=== PATIENT | female | born 1960 | race Caucasian/White ===

== ENCOUNTER 2021-12-06 22:40 | Inpatient (IN) ==
[2021-12-06] MEDS ORDERED: *HR* Ticagrelor 90 MG TABLET PO ONE (23:00)
[2021-12-06] MEDS ORDERED: Aspirin 81 MG TAB.CHEW PO ONE (23:00)
[2021-12-06] MEDS ORDERED: *HR* Heparin 5,000 UNIT/ML VIAL IVP ONE (23:00)
[2021-12-06] MEDS ORDERED: Aspirin 81 MG TAB.CHEW ONE (23:01)
[2021-12-06] MEDS ORDERED: *HR* Ticagrelor 90 MG TABLET ONE (23:01)
[2021-12-06] MEDS ORDERED: *HR* Heparin 5,000 UNIT/ML VIAL ONE (23:01)
[2021-12-06 23:09] LABS: Basophils % 0.3 %; Eosinophils # 0.1 K/mcL (0.0-0.6); Eosinophils % 0.8 %; Hematocrit 41.4 % (35.3-44.9); Hemoglobin 14.4 g/dL (11.5-15.4); Immature Granulocytes % 0.7 % (0-4); Lymphocytes # 1.6 K/mcL (0.6-4.6); Lymphocytes % 10.8 %; Mean Corpuscular HGB Conc 34.8 g/dL (31.6-35.5); Mean Corpuscular Volume 103.5 fL (83.0-100.0); Mean Platelet Volume 9.7 fL (9.4-12.4); Monocytes # 1.4 K/mcL (0.0-1.3); Monocytes % 9.5 %; Neutrophils # 11.5 K/mcL (1.6-8.9); Platelet Count 333 K/mcL (140-400); Segmented Neutrophils % 77.9 %; White Blood Count 14.7 K/mcL (4.3-11.1)
[2021-12-06] MEDS ORDERED: *HR* FentaNYL (PF) 100 MCG/2 ML VIAL ONE (23:11)
[2021-12-06] MEDS ORDERED: *HR* Midazolam HCl 2 MG/2 ML VIAL ONE (23:11)
[2021-12-06] MEDS ORDERED: *HR* Heparin 10,000 UNIT/10 ML VIAL ONE (23:12)
[2021-12-06] MEDS ORDERED: 0.9 % Sodium Chloride 1,000 ML ONE (23:12)
[2021-12-06] MEDS ORDERED: Heparin 1,000 UNITS/500 mL 1,000 ML ONE (23:12)
[2021-12-06] MEDS ORDERED: Iopamidol - 370 200 ML INFUS..BTL ONE (23:12)
[2021-12-06] MEDS ORDERED: Nitroglycerin 1,000 MCG/5 ML VIAL IV ONE (23:12)
[2021-12-06 23:30] LABS: BUN/Creatinine Ratio 14 (6-26); Blood Urea Nitrogen 9 mg/dL (6-20); Calcium 9.8 mg/dL (8.6-10.3); Carbon Dioxide 24 mEq/L (23-29); Chloride 99 mEq/L (98-107); Glucose 150 mg/dL (70-105); Osmolality,Calculated 278 (280-300); Sodium 133 mEq/L (136-145)
[2021-12-06 23:35] LABS: Troponin I 3.98 ng/mL (< 0.04)
[2021-12-06 23:37] LABS: Platelet Estimate Normal (Normal)
[2021-12-07] MEDS ORDERED: Iopamidol - 370 200 ML INFUS..BTL ONE (00:04)
[2021-12-07] MEDS ORDERED: *HR* Midazolam HCl 2 MG/2 ML VIAL ONE (00:55)
[2021-12-07] MEDS ORDERED: Heparin 1,000 UNITS/500 mL 500 ML ONE (01:03)
[2021-12-07] MEDS ORDERED: *HR* FentaNYL (PF) 100 MCG/2 ML VIAL ONE (01:19)
[2021-12-07] MEDS ORDERED: Naloxone 0.4 MG/ML INJ IVP PRN (01:45)
[2021-12-07] MEDS ORDERED: Papaverine 60 MG/2 ML VIAL IVP ONE (01:49)
[2021-12-07] MEDS ORDERED: Chlorhexidine Rinse 15 ML MOUTHWASH MM SCH (02:00)
[2021-12-07] MEDS ORDERED: *HR* FentaNYL (PF) 1,000 MCG/20 ML VIAL ONE (02:10)
[2021-12-07] MEDS ORDERED: EPHEDrine sulfate 50 MG/10 ML VIAL IVP ONE (02:10)
[2021-12-07] MEDS ORDERED: *HR* Midazolam HCl 5 MG/5 ML VIAL IVP ONE (02:10)
[2021-12-07] MEDS ORDERED: *HR* Norepinephrine 4 MG/4 ML VIAL IVC ONE (02:12)
[2021-12-07] MEDS ORDERED: *HR* Rocuronium Bromide 50 MG/5 ML VIAL ONE ×2 (02:12→06:19)
[2021-12-07] MEDS ORDERED: niCARdipine 20 MG/200 ML MLS IVC ONE (02:12)
[2021-12-07] MEDS ORDERED: Tranexamic Acid 1,000 MG/10 ML VIAL ONE (02:14)
[2021-12-07] MEDS ORDERED: *HR* Etomidate 20 MG/10 ML AMPUL IVP ONE (02:14)
[2021-12-07] MEDS ORDERED: Calcium Gluconate 1,000 MG/10 ML VIAL ONE (02:14)
[2021-12-07] MEDS ORDERED: Protamine Sulfate 250 MG/25 ML VIAL IVP ONE (02:18)
[2021-12-07] MEDS ORDERED: DOBUTamine 1,000 MG/250 ML BAG ONE (02:20)
[2021-12-07] MEDS ORDERED: NiCARdipine 2.5 MG/10 ML Syringe IVPB ONE (02:20)
[2021-12-07] MEDS ORDERED: Insulin Regular, Human 100 UNIT/ML IV PRN (02:27)
[2021-12-07] MEDS ORDERED: Ondansetron 4 MG/2 ML VIAL IVP PRN (02:27)
[2021-12-07] MEDS ORDERED: *HR* FentaNYL (PF) 100 MCG/2 ML VIAL IVP PRN ×2 (02:27→14:06)
[2021-12-07] MEDS ORDERED: Acetaminophen 325 MG TABLET PO PRN (02:27)
[2021-12-07] MEDS ORDERED: Calcium Gluconate 1gm/50mL 1 GM/50 ML BAG IVPB PRN (02:27)
[2021-12-07] MEDS ORDERED: *HR* Dextrose 50 % in Water (Syg) 50 ML SYRINGE IVP PRN (02:27)
[2021-12-07] MEDS ORDERED: *HR* Vasopressin 20 UNIT/ML VIAL ONE (02:28)
[2021-12-07 03:12] LABS: Basophils % 0.3 %; Eosinophils % 0.1 %; Hematocrit 37.3 % (35.3-44.9); Immature Granulocytes % 0.3 % (0-4); Lymphocytes # 1.1 K/mcL (0.6-4.6); Lymphocytes % 7.2 %; Mean Corpuscular Hemoglobin 35.4 pg (28.0-33.3); Mean Corpuscular Volume 103.9 fL (83.0-100.0); Mean Platelet Volume 9.9 fL (9.4-12.4); Monocytes # 1.3 K/mcL (0.0-1.3); Monocytes % 8.4 %; Platelet Count 302 K/mcL (140-400); Red Blood Count 3.59 M/mcL (3.82-4.97); Segmented Neutrophils % 83.7 %; White Blood Count 14.9 K/mcL (4.3-11.1)
[2021-12-07 03:13] LABS: Hemoglobin 12.7 g/dL (11.5-15.4); Neutrophils # 12.5 K/mcL (1.6-8.9)
[2021-12-07 03:18] LABS: Magnesium 1.6 mg/dL (1.6-2.6)
[2021-12-07 03:19] LABS: INR 1.2; Prothrombin Time 13.3 Seconds (9.4-12.1)
[2021-12-07 03:28] LABS: Estimated Average Glucose 108 mg/dl; Hemoglobin A1C 5.4 %
[2021-12-07 03:30] LABS: Activated Partial Thrombo Time 81.6 Seconds (26.0-36.0)
[2021-12-07 03:32] LABS: BUN/Creatinine Ratio 12 (6-26); Blood Urea Nitrogen 7 mg/dL (6-20); Carbon Dioxide 26 mEq/L (23-29); Chloride 102 mEq/L (98-107); Chol/HDL Ratio 3.6 (0-4.9); Cholesterol 157 mg/dL (< 200); Glucose 121 mg/dL (70-105); HDL Cholesterol 44 mg/dL (40-59); LDL Cholesterol,Calculated 96 mg/dL (< 100); Magnesium 1.7 mg/dL (1.6-2.6); Osmolality,Calculated 275 (280-300); Potassium 4.6 mEq/L (3.5-5.1); Sodium 133 mEq/L (136-145); Triglycerides 83 mg/dL (< 150)
[2021-12-07 03:35] LABS: ABG Base Excess -4 mEq/L (-2 to 3); ABG Chloride 101 mEq/L (98-107); ABG Glucose 106 mg/dL (60-95); ABG HCO3 20 mEq/L (21-27); ABG Ionized Calcium 1.19 mmol/L (1.15-1.35); ABG Oxygen Saturation 100 % (95-98); ABG PCO2 35 mmHg (35-45); ABG PH 7.38 pH Units (7.32-7.45); ABG PO2 414 mmHg (85-104); ABG TCO2 21 mEq/L (20-26)
[2021-12-07] MEDS: CeFAZolin Syr 2,000MG/20 ML 2,000 MG/20 ML SYRINGE IVPB ONE ×2 (03:39→03:45)
[2021-12-07 04:58] LABS: ABG Base Excess -4 mEq/L (-2 to 3); ABG Chloride 101 mEq/L (98-107); ABG Glucose 128 mg/dL (60-95); ABG HCO3 21 mEq/L (21-27); ABG Ionized Calcium 1.19 mmol/L (1.15-1.35); ABG Oxygen Saturation 99 % (95-98); ABG PCO2 38 mmHg (35-45); ABG PH 7.36 pH Units (7.32-7.45); ABG PO2 136 mmHg (85-104); ABG TCO2 23 mEq/L (20-26)
[2021-12-07 05:24] LABS: Platelet Estimate Normal (Normal)
[2021-12-07 05:46] LABS: ABG Base Excess -5 mEq/L (-2 to 3); ABG Chloride 100 mEq/L (98-107); ABG Glucose 171 mg/dL (60-95); ABG HCO3 20 mEq/L (21-27); ABG Ionized Calcium 1.04 mmol/L (1.15-1.35); ABG Oxygen Saturation 100 % (95-98); ABG PCO2 34 mmHg (35-45); ABG PH 7.37 pH Units (7.32-7.45); ABG PO2 506 mmHg (85-104); ABG TCO2 21 mEq/L (20-26)
[2021-12-07 06:12] LABS: ABG Base Excess 2 mEq/L (-2 to 3); ABG Chloride 101 mEq/L (98-107); ABG Glucose 178 mg/dL (60-95); ABG HCO3 25 mEq/L (21-27); ABG Ionized Calcium 0.95 mmol/L (1.15-1.35); ABG Oxygen Saturation 100 % (95-98); ABG PCO2 31 mmHg (35-45); ABG PH 7.51 pH Units (7.32-7.45); ABG PO2 548 mmHg (85-104); ABG TCO2 26 mEq/L (20-26)
[2021-12-07 06:36] LABS: ABG Base Excess -2 mEq/L (-2 to 3); ABG Chloride 102 mEq/L (98-107); ABG Glucose 187 mg/dL (60-95); ABG HCO3 24 mEq/L (21-27); ABG Ionized Calcium 1.02 mmol/L (1.15-1.35); ABG Oxygen Saturation 100 % (95-98); ABG PCO2 40 mmHg (35-45); ABG PH 7.37 pH Units (7.32-7.45); ABG PO2 470 mmHg (85-104); ABG TCO2 25 mEq/L (20-26)
[2021-12-07] MEDS: niCARdipine 20 MG/200 ML MLS IVC SCH ×6 (07:22→20:10)
[2021-12-07] MEDS: DOBUTamine 1,000 MG/250 ML BAG IVC SCH (07:22)
[2021-12-07] MEDS ORDERED: Albumin Human 5% 25.0 GM/500 ML IV.SOLN ONE (07:23)
[2021-12-07] MEDS: Norepinephrine 4 MG/254 ML IV.SOLN IVC SCH ×3 (07:23→18:46)
[2021-12-07 07:40] LABS: ABG Base Excess -4 mEq/L (-2 to 3); ABG Chloride 106 mEq/L (98-107); ABG Glucose 166 mg/dL (60-95); ABG HCO3 22 mEq/L (21-27); ABG Ionized Calcium 1.14 mmol/L (1.15-1.35); ABG Oxygen Saturation 98 % (95-98); ABG PCO2 45 mmHg (35-45); ABG PO2 108 mmHg (85-104); ABG TCO2 24 mEq/L (20-26)
[2021-12-07] MEDS ORDERED: CeFAZolin 2 GM/120 ML BAG IVPB SCH (08:00)
[2021-12-07] MEDS ORDERED: Artificial Tears SOLN 15 ML BOTTLE BOTH EYES PRN (08:11)
[2021-12-07 08:45] LABS: ABG Base Excess 0 mEq/L (-2 to 3); ABG HCO3 26 mEq/L (21-27); ABG Oxygen Saturation 94 % (95-98); ABG PCO2 51 mmHg (35-45); ABG PH 7.32 pH Units (7.32-7.45); ABG PO2 77 mmHg (85-104); ABG TCO2 28 mEq/L (20-26); Blood Gas Modality ASSIST CONTROL; Blood Gas VT 500 cc
[2021-12-07] MEDS ORDERED: 0.9 % Sodium Chloride 250 ML ONE ×2 (08:53→15:56)
[2021-12-07] MEDS: *HR* OxyCODONE/APAP 5/325 TABLET PO PRN ×3 (08:58→16:00)
[2021-12-07] MEDS: Chlorhexidine Rinse 15 ML MOUTHWASH MM SCH ×2 (08:58→20:09)
[2021-12-07] MEDS ORDERED: Pantoprazole 40 MG VIAL IVP SCH (09:00)
[2021-12-07] MEDS ORDERED: Aspirin 81 MG TAB.CHEW PO SCH (09:00)
[2021-12-07 09:50] LABS: Basophils % 0.1 %; Eosinophils % 0.3 %; Hematocrit 19.8 % (35.3-44.9); Hemoglobin 6.7 g/dL (11.5-15.4); Immature Granulocytes % 0.4 % (0-4); Lymphocytes # 0.6 K/mcL (0.6-4.6); Mean Corpuscular HGB Conc 33.8 g/dL (31.6-35.5); Mean Corpuscular Hemoglobin 34.5 pg (28.0-33.3); Mean Corpuscular Volume 102.1 fL (83.0-100.0); Monocytes # 0.7 K/mcL (0.0-1.3); Monocytes % 6.1 %; Neutrophils # 10.5 K/mcL (1.6-8.9); Platelet Count 127 K/mcL (140-400); Red Blood Count 1.94 M/mcL (3.82-4.97); Red Cell Distribution Width 21.3 % (11.5-14.5); Segmented Neutrophils % 88.1 %
[2021-12-07 09:52] LABS: White Blood Count 11.9 K/mcL (4.3-11.1)
[2021-12-07 10:04] LABS: INR 1.4; Prothrombin Time 15.6 Seconds (9.4-12.1)
[2021-12-07 10:07] LABS: Activated Partial Thrombo Time 44.5 Seconds (26.0-36.0); BUN/Creatinine Ratio 12 (6-26); Blood Urea Nitrogen 6 mg/dL (6-20); Calcium 7.5 mg/dL (8.6-10.3); Carbon Dioxide 26 mEq/L (23-29); Chloride 107 mEq/L (98-107); Glucose 124 mg/dL (70-105); Magnesium 2.3 mg/dL (1.6-2.6); Osmolality,Calculated 287 (280-300); Potassium 3.9 mEq/L (3.5-5.1); Sodium 139 mEq/L (136-145)
[2021-12-07 11:06] LABS: ABG Base Excess 1 mEq/L (-2 to 3); ABG HCO3 25 mEq/L (21-27); ABG Oxygen Saturation 99 % (95-98); ABG PCO2 36 mmHg (35-45); ABG PH 7.45 pH Units (7.32-7.45); ABG PO2 108 mmHg (85-104); ABG TCO2 26 mEq/L (20-26); Blood Gas Modality ASSIST CONTROL; Blood Gas VT 500 cc
[2021-12-07] MEDS: Artificial Tears SOLN 15 ML BOTTLE BOTH EYES SCH ×4 (11:33→23:41)
[2021-12-07] MEDS ORDERED: FentaNYL (PF) 1,000 MCG/100 ML IV.SOLN IVC SCH (11:45)
[2021-12-07] MEDS ORDERED: Aspirin 81 MG TAB.CHEW PO ONE (12:00)
[2021-12-07] MEDS: Dexmedetomidine HCl 400 MCG/100 ML MLS IVC SCH ×2 (12:08→20:20)
[2021-12-07] MEDS ORDERED: Lidocaine 2% Syringe 100 MG/5 ML IVP ONE (13:40)
[2021-12-07] MEDS ORDERED: Albumin Human 25% 25 GM/100 ML IV.SOLN IVPB ONE (13:40)
[2021-12-07] MEDS ORDERED: *HR* Phenylephrine 10 MG/ML VIAL IVC ONE (13:40)
[2021-12-07] MEDS ORDERED: *HR* Heparin 10,000 UNIT/10 ML VIAL IR ONE (13:40)
[2021-12-07] MEDS ORDERED: *HR* Magnesium Sulfate 2 GM/50 ML PIGGYBACK IVPB ONE (13:40)
[2021-12-07] MEDS ORDERED: Mannitol 25% vial 12.5 GM/50 ML VIAL IVPB ONE (13:40)
[2021-12-07] MEDS: FentaNYL (PF) 1,000 MCG/100 ML IV.SOLN IVC SCH ×2 (14:36→22:14)
[2021-12-07 15:22] LABS: Hematocrit 26.7 % (35.3-44.9)
[2021-12-07 15:25] LABS: ABG Base Excess -4 mEq/L (-2 to 3); ABG HCO3 19 mEq/L (21-27); ABG Oxygen Saturation 95 % (95-98); ABG PCO2 28 mmHg (35-45); ABG PH 7.45 pH Units (7.32-7.45); ABG PO2 72 mmHg (85-104); ABG TCO2 20 mEq/L (20-26); Blood Gas Modality ASSIST CONTROL; Blood Gas VT 500 cc
[2021-12-07 15:26] LABS: Hemoglobin 9.1 g/dL (11.5-15.4)
[2021-12-07] MEDS ORDERED: 0.9 % Sodium Chloride 500 ML ONE (15:29)
[2021-12-07] MEDS: CeFAZolin 2 GM/120 ML BAG IVPB SCH ×2 (16:31→23:42)
[2021-12-07 17:43] LABS: ABG Base Excess -2 mEq/L (-2 to 3); ABG HCO3 21 mEq/L (21-27); ABG Oxygen Saturation 94 % (95-98); ABG PCO2 32 mmHg (35-45); ABG PH 7.43 pH Units (7.32-7.45); ABG PO2 67 mmHg (85-104); ABG TCO2 22 mEq/L (20-26); Blood Gas Modality ASSIST CONTROL; Blood Gas VT 420 cc
[2021-12-07 17:52] LABS: VBG HCO3 22 mEq/L (21-27); VBG PCO2 40 mmHg (41-51); VBG PH 7.34 pH Units (7.32-7.42); VBG PO2 37 mmHg (25-50)
[2021-12-07] MEDS ORDERED: Bumetanide 1 MG/4 ML VIAL IVP ONE (18:22)
[2021-12-07 21:15] LABS: Basophils # 0.1 K/mcL (0.0-0.2); Basophils % 0.3 %; Eosinophils % 0.1 %; Immature Granulocytes % 0.4 % (0-4); Lymphocytes # 1.1 K/mcL (0.6-4.6); Lymphocytes % 7.4 %; Mean Corpuscular HGB Conc 34.5 g/dL (31.6-35.5); Mean Corpuscular Hemoglobin 30.2 pg (28.0-33.3); Mean Platelet Volume 9.3 fL (9.4-12.4); Monocytes # 1.9 K/mcL (0.0-1.3); Monocytes % 12.1 %; Neutrophils # 12.3 K/mcL (1.6-8.9); Platelet Count 235 K/mcL (140-400); Red Blood Count 3.77 M/mcL (3.82-4.97); Red Cell Distribution Width 18.1 % (11.5-14.5); Segmented Neutrophils % 79.7 %; White Blood Count 15.4 K/mcL (4.3-11.1)
[2021-12-07 21:17] LABS: Hemoglobin 11.4 g/dL (11.5-15.4); Mean Corpuscular Volume 87.5 fL (83.0-100.0)
[2021-12-07 21:22] LABS: INR 1.3
[2021-12-07] MEDS ORDERED: Acetaminophen IV 1,000 MG/100 ML BAG IVPB ONE (21:40)
[2021-12-07 22:00] LABS: ABG Base Excess -1 mEq/L (-2 to 3); ABG HCO3 22 mEq/L (21-27); ABG Oxygen Saturation 97 % (95-98); ABG PCO2 28 mmHg (35-45); ABG PH 7.49 pH Units (7.32-7.45); ABG PO2 80 mmHg (85-104); ABG TCO2 23 mEq/L (20-26); Blood Gas Modality ASSIST CONTROL; Blood Gas VT 420 cc
[2021-12-08] MEDS: Norepinephrine 4 MG/254 ML IV.SOLN IVC SCH ×4 (01:02→23:23)
[2021-12-08] MEDS ORDERED: *HR* Midazolam HCl 2 MG/2 ML VIAL IVP PRN (01:34)
[2021-12-08] MEDS ORDERED: Bumetanide 1 MG/4 ML VIAL IVP ONE (02:00)
[2021-12-08] MEDS: niCARdipine 20 MG/200 ML MLS IVC SCH ×6 (02:16→20:54)
[2021-12-08] MEDS: Dexmedetomidine HCl 400 MCG/100 ML MLS IVC SCH ×2 (02:20→07:21)
[2021-12-08 02:28] LABS: Hematocrit 32.7 % (35.3-44.9); Hemoglobin 11.5 g/dL (11.5-15.4)
[2021-12-08] MEDS: DOBUTamine 1,000 MG/250 ML BAG IVC SCH ×2 (03:03→04:00)
[2021-12-08] MEDS: FentaNYL (PF) 1,000 MCG/100 ML IV.SOLN IVC SCH (04:05)
[2021-12-08] MEDS: Artificial Tears SOLN 15 ML BOTTLE BOTH EYES SCH ×4 (04:15→20:13)
[2021-12-08 04:29] LABS: Basophils # 0.1 K/mcL (0.0-0.2); Basophils % 0.4 %; Eosinophils % 0.1 %; Hemoglobin 11.5 g/dL (11.5-15.4); Immature Granulocytes % 0.5 % (0-4); Lymphocytes # 1.2 K/mcL (0.6-4.6); Lymphocytes % 8.2 %; Mean Corpuscular HGB Conc 34.8 g/dL (31.6-35.5); Mean Corpuscular Hemoglobin 30.4 pg (28.0-33.3); Mean Corpuscular Volume 87.3 fL (83.0-100.0); Mean Platelet Volume 9.6 fL (9.4-12.4); Monocytes # 1.8 K/mcL (0.0-1.3); Monocytes % 12.2 %; Neutrophils # 11.6 K/mcL (1.6-8.9); Platelet Count 196 K/mcL (140-400); Red Blood Count 3.78 M/mcL (3.82-4.97); Red Cell Distribution Width 19.2 % (11.5-14.5); Segmented Neutrophils % 78.6 %; White Blood Count 14.8 K/mcL (4.3-11.1)
[2021-12-08 04:36] LABS: INR 1.4; Prothrombin Time 16.1 Seconds (9.4-12.1)
[2021-12-08 04:49] LABS: BUN/Creatinine Ratio 25 (6-26); Blood Urea Nitrogen 14 mg/dL (6-20); Calcium 7.8 mg/dL (8.6-10.3); Carbon Dioxide 23 mEq/L (23-29); Chloride 107 mEq/L (98-107); Glucose 106 mg/dL (70-105); Osmolality,Calculated 289 (280-300); Potassium 4.1 mEq/L (3.5-5.1); Sodium 139 mEq/L (136-145)
[2021-12-08 05:20] LABS: ABG Base Excess 0 mEq/L (-2 to 3); ABG HCO3 23 mEq/L (21-27); ABG Oxygen Saturation 91 % (95-98); ABG PCO2 32 mmHg (35-45); ABG PH 7.47 pH Units (7.32-7.45); ABG PO2 57 mmHg (85-104); ABG TCO2 24 mEq/L (20-26); Blood Gas Modality ASSIST CONTROL; Blood Gas VT 420 cc
[2021-12-08] MEDS: Pantoprazole 40 MG VIAL IVP SCH ×2 (05:34→20:54)
[2021-12-08] MEDS ORDERED: Calcium Gluconate 1gm/50mL 1 GM/50 ML BAG IVPB PRN ×2 (05:34→05:45)
[2021-12-08] MEDS ORDERED: FentaNYL (PF) 1,000 MCG/100 ML IV.SOLN IVC SCH (05:47)
[2021-12-08] MEDS ORDERED: Amiodarone Premix 150 MG/100 ML BAG IVPB ONE ×2 (06:25→06:29)
[2021-12-08] MEDS ORDERED: Amiodarone Premix 360 MG/200 ML BAG IVC ONE (06:25)
[2021-12-08] MEDS ORDERED: *HR* Midazolam HCl 2 MG/2 ML VIAL IVP ONE (06:30)
[2021-12-08] MEDS: Albumin Human 5% 12.5 GM/250 ML IV.SOLN IVPB PRN ×6 (06:30→17:35)
[2021-12-08] MEDS ORDERED: Ringers Solution, Lactated 1,000 ML ONE (06:36)
[2021-12-08] MEDS ORDERED: Ringers Solution, Lactated 1,000 ML IVC ONE (06:36)
[2021-12-08] MEDS ORDERED: Midazolam HCl 50 MG/50 ML IV.SOLN IVC SCH (07:00)
[2021-12-08] MEDS: CeFAZolin 2 GM/120 ML BAG IVPB SCH ×3 (08:49→23:26)
[2021-12-08] MEDS: Chlorhexidine Rinse 15 ML MOUTHWASH MM SCH ×2 (08:50→20:54)
[2021-12-08] MEDS ORDERED: Docusate Oral Soln 100 MG/10 ML UDC GTUBE SCH (09:15)
[2021-12-08 11:00] LABS: Mixed Venous Blood pCO2 42 mmHg (44-46); Mixed Venous Blood pH 7.34 pH Units (7.34-7.36); Mixed Venous Blood pO2 73 mmHg (35-45)
[2021-12-08] MEDS: Amiodarone Premix 360 MG/200 ML BAG IVC SCH (12:45)
[2021-12-08 13:06] LABS: Hematocrit 29.3 % (35.3-44.9); Hemoglobin 10.1 g/dL (11.5-15.4)
[2021-12-08] MEDS: Aspirin Enteric Coated 81 MG Tablet PO SCH (14:54)
[2021-12-08] MEDS: *HR* OxyCODONE/APAP 5/325 TABLET PO PRN ×2 (14:54→18:46)
[2021-12-08 18:04] LABS: Hematocrit 25.8 % (35.3-44.9); Hemoglobin 8.8 g/dL (11.5-15.4)
[2021-12-08] MEDS ORDERED: *HR* OxyCODONE/APAP 5/325 TABLET PO ONE (18:57)
[2021-12-08] MEDS: Morphine Sulfate ER (12 HR) 15 MG TABLET.ER PO SCH (19:15)
[2021-12-08] MEDS ORDERED: *HR* OxyCODONE Immed Rel 5 MG TABLET PO PRN (20:00)
[2021-12-09] MEDS: Amiodarone Premix 360 MG/200 ML BAG IVC SCH (00:20)
[2021-12-09] MEDS: *HR* OxyCODONE Immed Rel 5 MG TABLET PO PRN ×3 (03:20→16:07)
[2021-12-09] MEDS: niCARdipine 20 MG/200 ML MLS IVC SCH ×6 (03:20→23:05)
[2021-12-09 03:58] LABS: Basophils % 0.3 %; Eosinophils % 0.3 %; Hematocrit 26.5 % (35.3-44.9); Hemoglobin 9.2 g/dL (11.5-15.4); Immature Granulocytes % 0.4 % (0-4); Lymphocytes # 0.8 K/mcL (0.6-4.6); Lymphocytes % 6.8 %; Mean Corpuscular HGB Conc 34.7 g/dL (31.6-35.5); Mean Corpuscular Hemoglobin 30.7 pg (28.0-33.3); Mean Corpuscular Volume 88.3 fL (83.0-100.0); Mean Platelet Volume 10.9 fL (9.4-12.4); Neutrophils # 9.3 K/mcL (1.6-8.9); Platelet Count 131 K/mcL (140-400); Red Cell Distribution Width 19.6 % (11.5-14.5); Segmented Neutrophils % 83.2 %; White Blood Count 11.2 K/mcL (4.3-11.1)
[2021-12-09 04:02] LABS: Bacteria,Urine Many per hpf (None-Few); Bilirubin,Urine Negative (Negative); Blood,Urine Large (Negative); Clarity,Urine Ex.Turbid (Clear); Color,Urine Dark-Yellow (Yellow); Glucose,Urine (UA) Normal (Normal); Ketones,Urine 20 mg/dL (Negative); Leukocyte Esterase,Urine Negative (Negative); Mucus,Urine Few per lpf (None-Few); Nitrite,Urine Negative (Negative); Protein,Urine 100 mg/dL (Neg-Trace); RBC,Urine TNTC per hpf (0-3); Specific Gravity,Urine > 1.030 (1.010-1.025); Urobilinogen,Urine Normal (Normal); WBC,Urine 50-100 per hpf (0-3)
[2021-12-09 04:08] LABS: INR 1.8; Prothrombin Time 19.6 Seconds (9.4-12.1)
[2021-12-09 04:15] LABS: BUN/Creatinine Ratio 27 (6-26); Blood Urea Nitrogen 15 mg/dL (6-20); Calcium 7.8 mg/dL (8.6-10.3); Carbon Dioxide 23 mEq/L (23-29); Chloride 103 mEq/L (98-107); Glucose 115 mg/dL (70-105); Osmolality,Calculated 280 (280-300); Potassium 3.2 mEq/L (3.5-5.1); Sodium 134 mEq/L (136-145)
[2021-12-09] MEDS: Potassium Chloride 40 MEQ/200 ML BAG IVPB PRN (06:11)
[2021-12-09] MEDS: Chlorhexidine Rinse 15 ML MOUTHWASH MM SCH ×2 (07:44→20:49)
[2021-12-09] MEDS ORDERED: Heparin 15,000 UNIT in 0.9 % Sodium Chloride 500 ML IR ONE (07:45)
[2021-12-09] MEDS ORDERED: Norepinephrine 4 MG in 0.9 % Sodium Chloride 250 ML IVC PRN (07:45)
[2021-12-09] MEDS ORDERED: del Nido Cardioplegia Solution PF ONE ×2 (08:00)
[2021-12-09] MEDS ORDERED: Buckersberg's Blood Cardioplegia PF ONE (08:00)
[2021-12-09] MEDS: Morphine Sulfate ER (12 HR) 15 MG TABLET.ER PO SCH ×2 (08:10→19:18)
[2021-12-09] MEDS: Pantoprazole 40 MG VIAL IVP SCH (08:10)
[2021-12-09] MEDS: Aspirin Enteric Coated 81 MG Tablet PO SCH (08:10)
[2021-12-09] MEDS: CeFAZolin 2 GM/120 ML BAG IVPB SCH (08:11)
[2021-12-09] MEDS ORDERED: *HR* Dextrose 50 % in Water (Syg) 50 ML SYRINGE IVP PRN (08:28)
[2021-12-09] MEDS ORDERED: Dextrose Gel 15 GM/37.5 ML TUBE PO PRN ×2 (08:28)
[2021-12-09] MEDS ORDERED: D5% in Water 1,000 ML IVC PRN (08:28)
[2021-12-09] MEDS: *HR* Enoxaparin 40 MG/0.4 ML SYRINGE SQ SCH (09:58)
[2021-12-09] MEDS ORDERED: Furosemide 40 MG/4 ML VIAL IVP ONE (11:09)
[2021-12-09] MEDS: Insulin LISPRO 300 UNITS/3 ML VIAL SUBQ SCH ×2 (11:56→16:05)
[2021-12-09] MEDS: *HR* Amiodarone 200 MG TABLET PO SCH ×2 (12:44→20:53)
[2021-12-09] MEDS ORDERED: Insulin LISPRO 300 UNITS/3 ML VIAL SUBQ SCH (21:00)
[2021-12-09] MEDS ORDERED: QUEtiapine Fumarate 25 MG TABLET PO SCH (23:00)
[2021-12-10] MEDS: DOBUTamine 1,000 MG/250 ML BAG IVC SCH (03:47)
[2021-12-10] MEDS: niCARdipine 20 MG/200 ML MLS IVC SCH ×2 (03:47→06:05)
[2021-12-10 04:03] LABS: Basophils % 0.2 %; Eosinophils # 0.1 K/mcL (0.0-0.6); Eosinophils % 1.5 %; Hematocrit 25.5 % (35.3-44.9); Hemoglobin 8.5 g/dL (11.5-15.4); Immature Granulocytes % 0.3 % (0-4); Lymphocytes # 0.5 K/mcL (0.6-4.6); Lymphocytes % 8.6 %; Mean Corpuscular HGB Conc 33.3 g/dL (31.6-35.5); Mean Corpuscular Hemoglobin 29.8 pg (28.0-33.3); Mean Corpuscular Volume 89.5 fL (83.0-100.0); Mean Platelet Volume 11.3 fL (9.4-12.4); Monocytes # 0.7 K/mcL (0.0-1.3); Monocytes % 11.7 %; Neutrophils # 4.8 K/mcL (1.6-8.9); Nucleated Red Blood Cells 0.3 /100 WBC (0); Platelet Count 148 K/mcL (140-400); Red Blood Count 2.85 M/mcL (3.82-4.97); Red Cell Distribution Width 19.4 % (11.5-14.5); Segmented Neutrophils % 77.7 %; White Blood Count 6.2 K/mcL (4.3-11.1)
[2021-12-10 04:09] LABS: INR 1.5; Prothrombin Time 16.3 Seconds (9.4-12.1)
[2021-12-10 04:20] LABS: BUN/Creatinine Ratio 40 (6-26); Blood Urea Nitrogen 19 mg/dL (6-20); Carbon Dioxide 24 mEq/L (23-29); Chloride 100 mEq/L (98-107); Glucose 80 mg/dL (70-105); Magnesium 2.2 mg/dL (1.6-2.6); Osmolality,Calculated 275 (280-300); Potassium 3.4 mEq/L (3.5-5.1); Sodium 132 mEq/L (136-145)
[2021-12-10] MEDS: *HR* Enoxaparin 40 MG/0.4 ML SYRINGE SQ SCH (05:21)
[2021-12-10] MEDS: Potassium Chloride 40 MEQ/200 ML BAG IVPB PRN (05:22)
[2021-12-10] MEDS ORDERED: Potassium Chloride Elixir 20 MEQ/15 ML UDC PO ONE (06:47)
[2021-12-10] MEDS: Chlorhexidine Rinse 15 ML MOUTHWASH MM SCH ×2 (07:18→21:05)
[2021-12-10] MEDS ORDERED: Furosemide 40 MG/4 ML VIAL IVP SCH ×2 (08:00→17:00)
[2021-12-10] MEDS: *HR* OxyCODONE Immed Rel 5 MG TABLET PO PRN (08:35)
[2021-12-10] MEDS: Aspirin Enteric Coated 81 MG Tablet PO SCH (08:35)
[2021-12-10] MEDS: *HR* Amiodarone 200 MG TABLET PO SCH ×2 (08:35→21:07)
[2021-12-10] MEDS: Morphine Sulfate ER (12 HR) 15 MG TABLET.ER PO SCH ×2 (08:36→19:06)
[2021-12-10] MEDS ORDERED: Pantoprazole 40 MG VIAL IVP SCH (09:00)
[2021-12-10] MEDS ORDERED: Acetaminophen 325 MG TABLET PO PRN (12:16)
[2021-12-10] MEDS ORDERED: Potassium Chloride 40 MEQ/200 ML BAG IVPB PRN (12:16)
[2021-12-10] MEDS ORDERED: Naloxone 0.4 MG/ML INJ IVP PRN (12:16)
[2021-12-10] MEDS ORDERED: *HR* OxyCODONE Immed Rel 5 MG TABLET PO PRN ×2 (12:16)
[2021-12-10] MEDS ORDERED: Ondansetron 4 MG/2 ML VIAL IVP PRN (12:16)
[2021-12-10] MEDS: Sennosides 8.6 MG TABLET PO SCH (17:31)
[2021-12-10] MEDS: QUEtiapine Fumarate 25 MG TABLET PO SCH (21:06)
[2021-12-11 03:57] LABS: Basophils % 0.3 %; Eosinophils % 2.9 %; Hemoglobin 8.7 g/dL (11.5-15.4); Immature Granulocytes % 0.5 % (0-4); Lymphocytes % 6.9 %; Mean Corpuscular HGB Conc 33.5 g/dL (31.6-35.5); Mean Corpuscular Volume 92.5 fL (83.0-100.0); Mean Platelet Volume 11.3 fL (9.4-12.4); Monocytes % 9.6 %; Platelet Count 173 K/mcL (140-400); Red Blood Count 2.81 M/mcL (3.82-4.97); Red Cell Distribution Width 19.6 % (11.5-14.5); Segmented Neutrophils % 79.8 %; White Blood Count 6.3 K/mcL (4.3-11.1)
[2021-12-11 03:58] LABS: Eosinophils # 0.2 K/mcL (0.0-0.6); Lymphocytes # 0.4 K/mcL (0.6-4.6); Monocytes # 0.6 K/mcL (0.0-1.3); Nucleated Red Blood Cells 0.6 /100 WBC (0)
[2021-12-11 04:05] LABS: INR 1.4; Prothrombin Time 15.4 Seconds (9.4-12.1)
[2021-12-11 04:15] LABS: BUN/Creatinine Ratio 30 (6-26); Blood Urea Nitrogen 16 mg/dL (6-20); Calcium 8.1 mg/dL (8.6-10.3); Carbon Dioxide 24 mEq/L (23-29); Chloride 101 mEq/L (98-107); Glucose 89 mg/dL (70-105); Magnesium 2.2 mg/dL (1.6-2.6); Osmolality,Calculated 273 (280-300); Sodium 131 mEq/L (136-145)
[2021-12-11] MEDS: *HR* Enoxaparin 40 MG/0.4 ML SYRINGE SQ SCH (05:37)
[2021-12-11] MEDS: Aspirin Enteric Coated 81 MG Tablet PO SCH (07:59)
[2021-12-11] MEDS: *HR* Amiodarone 200 MG TABLET PO SCH ×2 (07:59→20:52)
[2021-12-11] MEDS: Sennosides 8.6 MG TABLET PO SCH (07:59)
[2021-12-11] MEDS: Furosemide 20 MG/2 ML VIAL IVP SCH (08:00)
[2021-12-11] MEDS: Morphine Sulfate ER (12 HR) 15 MG TABLET.ER PO SCH ×2 (08:00→20:51)
[2021-12-11] MEDS: Chlorhexidine Rinse 15 ML MOUTHWASH MM SCH (08:00)
[2021-12-11] MEDS ORDERED: Amiodarone Premix 150 MG/100 ML BAG IVPB ONE ×4 (09:56→17:46)
[2021-12-11] MEDS: Ipratropium/Albuterol Neb 3 ML IH SCH ×4 (11:30→23:33)
[2021-12-11] MEDS ORDERED: Norepinephrine 4 MG/254 ML IV.SOLN IVC SCH (11:45)
[2021-12-11] MEDS ORDERED: Lidocaine -MPF 1% 5 ML AMPUL INFILT ONE (11:58)
[2021-12-11] MEDS ORDERED: *HR* Digoxin 0.5 MG/2 ML AMPUL IVP SCH (13:18)
[2021-12-11] MEDS ORDERED: *HR* Warfarin 2.5 MG TABLET PO ONE (18:00)
[2021-12-11] MEDS ORDERED: Warfarin perPT PO PRN (18:00)
[2021-12-11 18:57] LABS: Thyroid Stimulating Hormone 4.026 mcIU/mL (0.340-5.600)
[2021-12-11] MEDS: QUEtiapine Fumarate 25 MG TABLET PO SCH (20:51)
[2021-12-12] MEDS: Ipratropium/Albuterol Neb 3 ML IH SCH ×6 (03:27→23:54)
[2021-12-12 04:51] LABS: Basophils % 0.2 %; Eosinophils # 0.2 K/mcL (0.0-0.6); Eosinophils % 2.1 %; Hemoglobin 8.1 g/dL (11.5-15.4); Immature Granulocytes % 0.6 % (0-4); Lymphocytes # 0.6 K/mcL (0.6-4.6); Lymphocytes % 6.8 %; Mean Corpuscular HGB Conc 32.4 g/dL (31.6-35.5); Mean Corpuscular Hemoglobin 30.5 pg (28.0-33.3); Mean Platelet Volume 11.2 fL (9.4-12.4); Monocytes # 0.7 K/mcL (0.0-1.3); Monocytes % 9.2 %; Neutrophils # 6.6 K/mcL (1.6-8.9); Platelet Count 204 K/mcL (140-400); Red Blood Count 2.66 M/mcL (3.82-4.97); Red Cell Distribution Width 19.4 % (11.5-14.5); Segmented Neutrophils % 81.1 %; White Blood Count 8.1 K/mcL (4.3-11.1)
[2021-12-12 04:58] LABS: INR 1.3; Prothrombin Time 14.8 Seconds (9.4-12.1)
[2021-12-12 05:09] LABS: BUN/Creatinine Ratio 28 (6-26); Blood Urea Nitrogen 13 mg/dL (6-20); Calcium 8.1 mg/dL (8.6-10.3); Carbon Dioxide 26 mEq/L (23-29); Chloride 100 mEq/L (98-107); Glucose 99 mg/dL (70-105); Magnesium 2.1 mg/dL (1.6-2.6); Osmolality,Calculated 274 (280-300); Potassium 3.7 mEq/L (3.5-5.1); Sodium 132 mEq/L (136-145)
[2021-12-12] MEDS: *HR* Enoxaparin 40 MG/0.4 ML SYRINGE SQ SCH (06:37)
[2021-12-12] MEDS: Sennosides 8.6 MG TABLET PO SCH (07:39)
[2021-12-12] MEDS: Aspirin Enteric Coated 81 MG Tablet PO SCH (07:39)
[2021-12-12] MEDS: Morphine Sulfate ER (12 HR) 15 MG TABLET.ER PO SCH ×2 (07:39→18:20)
[2021-12-12] MEDS: *HR* Amiodarone 200 MG TABLET PO SCH ×3 (07:40→21:10)
[2021-12-12] MEDS: Furosemide 20 MG/2 ML VIAL IVP SCH (07:51)
[2021-12-12] MEDS ORDERED: *HR* Amiodarone 200 MG TABLET PO SCH (09:00)
[2021-12-12] MEDS: Doxycycline 100 MG CAPSULE PO SCH ×3 (12:32→21:12)
[2021-12-12] MEDS ORDERED: *HR* Warfarin 2.5 MG TABLET PO ONE (18:00)
[2021-12-12] MEDS: QUEtiapine Fumarate 25 MG TABLET PO SCH ×2 (19:12→21:12)
[2021-12-12] MEDS ORDERED: Warfarin perPT PO PRN (20:40)
[2021-12-12] MEDS ORDERED: Ondansetron 4 MG/2 ML VIAL IVP PRN (20:40)
[2021-12-12] MEDS ORDERED: Potassium Chloride 40 MEQ/200 ML BAG IVPB PRN (20:40)
[2021-12-12] MEDS ORDERED: Acetaminophen 325 MG TABLET PO PRN (20:40)
[2021-12-12] MEDS ORDERED: Naloxone 0.4 MG/ML INJ IVP PRN (20:40)
[2021-12-12] MEDS: Norepinephrine 4 MG/254 ML IV.SOLN IVC SCH (21:10)
[2021-12-13] MEDS: *HR* OxyCODONE Immed Rel 5 MG TABLET PO PRN ×3 (00:17→15:10)
[2021-12-13] MEDS: Ipratropium/Albuterol Neb 3 ML IH SCH ×6 (04:34→23:54)
[2021-12-13 05:20] LABS: Basophils % 0.2 %; Eosinophils # 0.2 K/mcL (0.0-0.6); Eosinophils % 2.3 %; Hematocrit 25.9 % (35.3-44.9); Hemoglobin 8.2 g/dL (11.5-15.4); Immature Granulocytes % 0.7 % (0-4); Lymphocytes # 0.7 K/mcL (0.6-4.6); Lymphocytes % 8.3 %; Mean Corpuscular HGB Conc 31.7 g/dL (31.6-35.5); Mean Corpuscular Hemoglobin 30.5 pg (28.0-33.3); Mean Corpuscular Volume 96.3 fL (83.0-100.0); Mean Platelet Volume 10.8 fL (9.4-12.4); Monocytes % 11.3 %; Neutrophils # 6.5 K/mcL (1.6-8.9); Nucleated Red Blood Cells 0.2 /100 WBC (0); Platelet Count 254 K/mcL (140-400); Red Blood Count 2.69 M/mcL (3.82-4.97); Red Cell Distribution Width 19.4 % (11.5-14.5); Segmented Neutrophils % 77.2 %; White Blood Count 8.4 K/mcL (4.3-11.1)
[2021-12-13 05:32] LABS: BUN/Creatinine Ratio 24 (6-26); Blood Urea Nitrogen 11 mg/dL (6-20); Calcium 8.2 mg/dL (8.6-10.3); Carbon Dioxide 26 mEq/L (23-29); Chloride 99 mEq/L (98-107); Glucose 94 mg/dL (70-105); Magnesium 1.8 mg/dL (1.6-2.6); Osmolality,Calculated 271 (280-300); Potassium 3.6 mEq/L (3.5-5.1); Sodium 131 mEq/L (136-145)
[2021-12-13 05:33] LABS: INR 1.9; Prothrombin Time 21.3 Seconds (9.4-12.1)
[2021-12-13] MEDS ORDERED: *HR* Enoxaparin 40 MG/0.4 ML SYRINGE SQ SCH (06:00)
[2021-12-13] MEDS ORDERED: Furosemide 20 MG/2 ML VIAL IVP SCH (09:00)
[2021-12-13] MEDS: Morphine Sulfate ER (12 HR) 15 MG TABLET.ER PO SCH ×2 (09:19→19:40)
[2021-12-13] MEDS: Aspirin Enteric Coated 81 MG Tablet PO SCH (09:19)
[2021-12-13] MEDS: *HR* Amiodarone 200 MG TABLET PO SCH ×2 (09:20→19:40)
[2021-12-13] MEDS: Doxycycline 100 MG CAPSULE PO SCH ×2 (09:21→19:40)
[2021-12-13] MEDS: Sennosides 8.6 MG TABLET PO SCH (09:22)
[2021-12-13] MEDS ORDERED: *HR* Warfarin 0.5 MG TABLET PO ONE (18:00)
[2021-12-13] MEDS ORDERED: *HR* Warfarin 1 MG TABLET PO ONE (18:00)
[2021-12-13] MEDS: QUEtiapine Fumarate 25 MG TABLET PO SCH (19:40)
[2021-12-13] MEDS: Norepinephrine 4 MG/254 ML IV.SOLN IVC SCH (19:40)
[2021-12-14] MEDS: Ipratropium/Albuterol Neb 3 ML IH SCH ×6 (04:23→23:49)
[2021-12-14 04:50] LABS: Basophils % 0.1 %; Eosinophils # 0.3 K/mcL (0.0-0.6); Eosinophils % 3.8 %; Hematocrit 24.9 % (35.3-44.9); Hemoglobin 7.9 g/dL (11.5-15.4); Immature Granulocytes % 0.9 % (0-4); Lymphocytes # 0.6 K/mcL (0.6-4.6); Lymphocytes % 8.1 %; Mean Corpuscular HGB Conc 31.7 g/dL (31.6-35.5); Mean Corpuscular Hemoglobin 29.9 pg (28.0-33.3); Mean Corpuscular Volume 94.3 fL (83.0-100.0); Mean Platelet Volume 10.7 fL (9.4-12.4); Monocytes % 12.8 %; Neutrophils # 5.6 K/mcL (1.6-8.9); Platelet Count 310 K/mcL (140-400); Red Blood Count 2.64 M/mcL (3.82-4.97); Red Cell Distribution Width 18.8 % (11.5-14.5); Segmented Neutrophils % 74.3 %; White Blood Count 7.6 K/mcL (4.3-11.1)
[2021-12-14 04:57] LABS: INR 2.5; Prothrombin Time 28.2 Seconds (9.4-12.1)
[2021-12-14 05:08] LABS: BUN/Creatinine Ratio 21 (6-26); Blood Urea Nitrogen 9 mg/dL (6-20); Calcium 8.4 mg/dL (8.6-10.3); Carbon Dioxide 25 mEq/L (23-29); Chloride 101 mEq/L (98-107); Glucose 95 mg/dL (70-105); Magnesium 1.7 mg/dL (1.6-2.6); Osmolality,Calculated 272 (280-300); Potassium 3.5 mEq/L (3.5-5.1); Sodium 132 mEq/L (136-145)
[2021-12-14] MEDS: *HR* OxyCODONE Immed Rel 5 MG TABLET PO PRN ×2 (05:09→16:15)
[2021-12-14] MEDS: Morphine Sulfate ER (12 HR) 15 MG TABLET.ER PO SCH ×2 (06:24→21:05)
[2021-12-14] MEDS: Doxycycline 100 MG CAPSULE PO SCH ×2 (07:41→21:04)
[2021-12-14] MEDS: Aspirin Enteric Coated 81 MG Tablet PO SCH (07:46)
[2021-12-14] MEDS: Sennosides 8.6 MG TABLET PO SCH (07:46)
[2021-12-14] MEDS: *HR* Amiodarone 200 MG TABLET PO SCH ×2 (07:47→21:04)
[2021-12-14] MEDS: Norepinephrine 4 MG/254 ML IV.SOLN IVC SCH (07:47)
[2021-12-14 12:58] LABS: Magnesium 2.1 mg/dL (1.6-2.6); Potassium 3.9 mEq/L (3.5-5.1)
[2021-12-14] MEDS ORDERED: Potassium Chloride Elixir 20 MEQ/15 ML UDC PO ONE (15:30)
[2021-12-14] MEDS ORDERED: *HR* Warfarin 0.5 MG TABLET PO ONE (18:00)
[2021-12-14] MEDS: QUEtiapine Fumarate 25 MG TABLET PO SCH (21:05)
[2021-12-15] MEDS: Ipratropium/Albuterol Neb 3 ML IH SCH ×6 (04:15→23:22)
[2021-12-15 06:11] LABS: Hematocrit 26.7 % (35.3-44.9); Hemoglobin 8.5 g/dL (11.5-15.4); Mean Corpuscular HGB Conc 31.8 g/dL (31.6-35.5); Mean Corpuscular Hemoglobin 30.1 pg (28.0-33.3); Mean Corpuscular Volume 94.7 fL (83.0-100.0); Mean Platelet Volume 10.1 fL (9.4-12.4); Platelet Count 411 K/mcL (140-400); Red Blood Count 2.82 M/mcL (3.82-4.97); Red Cell Distribution Width 19.2 % (11.5-14.5); White Blood Count 8.7 K/mcL (4.3-11.1)
[2021-12-15 06:27] LABS: BUN/Creatinine Ratio 19 (6-26); Blood Urea Nitrogen 8 mg/dL (6-20); Calcium 8.8 mg/dL (8.6-10.3); Carbon Dioxide 25 mEq/L (23-29); Chloride 101 mEq/L (98-107); Glucose 88 mg/dL (70-105); INR 2.3; Magnesium 1.9 mg/dL (1.6-2.6); Osmolality,Calculated 272 (280-300); Potassium 4.3 mEq/L (3.5-5.1); Prothrombin Time 25.8 Seconds (9.4-12.1); Sodium 132 mEq/L (136-145)
[2021-12-15] MEDS: Sennosides 8.6 MG TABLET PO SCH (08:25)
[2021-12-15] MEDS: Morphine Sulfate ER (12 HR) 15 MG TABLET.ER PO SCH ×2 (08:26→20:28)
[2021-12-15] MEDS: Doxycycline 100 MG CAPSULE PO SCH ×2 (08:28→20:28)
[2021-12-15] MEDS: *HR* Amiodarone 200 MG TABLET PO SCH ×2 (08:28→20:28)
[2021-12-15] MEDS: Aspirin Enteric Coated 81 MG Tablet PO SCH (08:29)
[2021-12-15] MEDS: Potassium Chloride Elixir 20 MEQ/15 ML UDC PO SCH (08:30)
[2021-12-15] MEDS: *HR* OxyCODONE Immed Rel 5 MG TABLET PO PRN (11:40)
[2021-12-15] MEDS ORDERED: *HR* Warfarin 2 MG TABLET PO ONE (18:00)
[2021-12-15] MEDS: QUEtiapine Fumarate 25 MG TABLET PO SCH (20:28)
[2021-12-16] MEDS: Ipratropium/Albuterol Neb 3 ML IH SCH ×5 (04:39→20:10)
[2021-12-16 05:03] LABS: Hematocrit 26.9 % (35.3-44.9); Hemoglobin 8.7 g/dL (11.5-15.4); Mean Corpuscular HGB Conc 32.3 g/dL (31.6-35.5); Mean Corpuscular Hemoglobin 30.7 pg (28.0-33.3); Mean Corpuscular Volume 95.1 fL (83.0-100.0); Platelet Count 480 K/mcL (140-400); Red Blood Count 2.83 M/mcL (3.82-4.97); Red Cell Distribution Width 18.9 % (11.5-14.5); White Blood Count 9.5 K/mcL (4.3-11.1)
[2021-12-16 05:10] LABS: INR 2.8; Prothrombin Time 30.8 Seconds (9.4-12.1)
[2021-12-16 05:21] LABS: BUN/Creatinine Ratio 20 (6-26); Blood Urea Nitrogen 8 mg/dL (6-20); Calcium 8.9 mg/dL (8.6-10.3); Carbon Dioxide 24 mEq/L (23-29); Chloride 100 mEq/L (98-107); Glucose 101 mg/dL (70-105); Magnesium 1.6 mg/dL (1.6-2.6); Osmolality,Calculated 270 (280-300); Potassium 4.1 mEq/L (3.5-5.1); Sodium 131 mEq/L (136-145)
[2021-12-16] MEDS: Doxycycline 100 MG CAPSULE PO SCH ×2 (08:25→20:07)
[2021-12-16] MEDS: Morphine Sulfate ER (12 HR) 15 MG TABLET.ER PO SCH ×2 (08:25→20:06)
[2021-12-16] MEDS: *HR* Amiodarone 200 MG TABLET PO SCH ×2 (08:25→20:07)
[2021-12-16] MEDS: Aspirin Enteric Coated 81 MG Tablet PO SCH (08:25)
[2021-12-16] MEDS: Sennosides 8.6 MG TABLET PO SCH ×2 (08:25→10:37)
[2021-12-16] MEDS: Potassium Chloride Elixir 20 MEQ/15 ML UDC PO SCH (08:37)
[2021-12-16] MEDS ORDERED: Metoprolol XL (24 HR) Succ 25 MG TAB.ER.24H PO SCH ×2 (09:15→10:57)
[2021-12-16] MEDS: *HR* OxyCODONE Immed Rel 5 MG TABLET PO PRN (12:32)
[2021-12-16] MEDS ORDERED: *HR* Warfarin 0.5 MG TABLET PO ONE (18:00)
[2021-12-16] MEDS: QUEtiapine Fumarate 25 MG TABLET PO SCH (20:06)
[2021-12-17] MEDS: Ipratropium/Albuterol Neb 3 ML IH SCH ×6 (00:17→20:07)
[2021-12-17 05:08] LABS: Basophils # 0.1 K/mcL (0.0-0.2); Basophils % 0.7 %; Eosinophils # 0.3 K/mcL (0.0-0.6); Eosinophils % 3.8 %; Hematocrit 26.9 % (35.3-44.9); Hemoglobin 8.6 g/dL (11.5-15.4); Lymphocytes # 0.8 K/mcL (0.6-4.6); Lymphocytes % 9.2 %; Mean Corpuscular Hemoglobin 30.5 pg (28.0-33.3); Mean Corpuscular Volume 95.4 fL (83.0-100.0); Mean Platelet Volume 9.8 fL (9.4-12.4); Monocytes # 1.2 K/mcL (0.0-1.3); Monocytes % 13.5 %; Neutrophils # 6.2 K/mcL (1.6-8.9); Platelet Count 560 K/mcL (140-400); Red Blood Count 2.82 M/mcL (3.82-4.97); Red Cell Distribution Width 18.9 % (11.5-14.5); Segmented Neutrophils % 71.8 %; White Blood Count 8.7 K/mcL (4.3-11.1)
[2021-12-17 05:16] LABS: INR 2.3; Prothrombin Time 25.1 Seconds (9.4-12.1)
[2021-12-17 05:30] LABS: BUN/Creatinine Ratio 19 (6-26); Blood Urea Nitrogen 9 mg/dL (6-20); Calcium 8.9 mg/dL (8.6-10.3); Carbon Dioxide 26 mEq/L (23-29); Chloride 100 mEq/L (98-107); Glucose 95 mg/dL (70-105); Magnesium 1.8 mg/dL (1.6-2.6); Osmolality,Calculated 270 (280-300); Potassium 4.2 mEq/L (3.5-5.1); Sodium 131 mEq/L (136-145)
[2021-12-17] MEDS: Morphine Sulfate ER (12 HR) 15 MG TABLET.ER PO SCH (08:36)
[2021-12-17] MEDS: Potassium Chloride Elixir 20 MEQ/15 ML UDC PO SCH (08:37)
[2021-12-17] MEDS: Doxycycline 100 MG CAPSULE PO SCH (08:37)
[2021-12-17] MEDS: Sennosides 8.6 MG TABLET PO SCH (08:37)
[2021-12-17] MEDS: *HR* Amiodarone 200 MG TABLET PO SCH (08:37)
[2021-12-17] MEDS: Aspirin Enteric Coated 81 MG Tablet PO SCH (08:37)
[2021-12-17] MEDS ORDERED: Acetaminophen 325 MG TABLET PO PRN (10:20)
[2021-12-17] MEDS ORDERED: Warfarin perPT PO PRN (10:20)
[2021-12-17] MEDS ORDERED: Ondansetron 4 MG/2 ML VIAL IVP PRN (10:20)
[2021-12-17] MEDS ORDERED: Naloxone 0.4 MG/ML INJ IVP PRN (10:20)
[2021-12-17] MEDS ORDERED: *HR* OxyCODONE Immed Rel 5 MG TABLET PO PRN ×2 (10:20)
[2021-12-17] MEDS ORDERED: ALPRAZolam 0.25 MG TABLET PO ONE (13:56)
[2021-12-17 16:57] VITALS: BP 83/64; PULSE 88; TEMP 97.9; O2SAT 97
[2021-12-17] MEDS ORDERED: Warfarin 1 MG, Warfarin 0.5 MG PO ONE ×2 (18:00)
[2021-12-17] MEDS ORDERED: Morphine Sulfate ER (12 HR) 15 MG TABLET.ER PO SCH (19:15)
[2021-12-17] MEDS ORDERED: QUEtiapine Fumarate 25 MG TABLET PO SCH (21:00)
[2021-12-17] MEDS ORDERED: Doxycycline 100 MG CAPSULE PO SCH (21:00)
[2021-12-17] MEDS ORDERED: *HR* Amiodarone 200 MG TABLET PO SCH (21:00)
[2021-12-18] MEDS ORDERED: Aspirin Enteric Coated 81 MG Tablet PO SCH (09:00)
[2021-12-18] MEDS ORDERED: Metoprolol XL (24 HR) Succ 25 MG TAB.ER.24H PO SCH (09:00)
[2021-12-18] MEDS ORDERED: Sennosides 8.6 MG TABLET PO SCH (09:00)
[2021-12-18] MEDS ORDERED: Potassium Chloride Elixir 20 MEQ/15 ML UDC PO SCH (09:00)
== END 2021-12-17 20:26 | DRG 165 ==
LOC: EMEROOARM 22:40 → ICNU 23:33 → SUATTDRO 23:43 → ICNU 12-07 02:06 → 2NNU 12-14 11:25 → 2NENU 12-17 10:11
PROVIDERS: ADMIT Internal Medicine; ATTEND Pediatrics

== ENCOUNTER 2021-12-31 18:58 | Inpatient (IN) ==
[2021-12-31 19:44] LABS: Basophils # 0.1 K/mcL (0.0-0.2); Basophils % 0.9 %; Eosinophils # 0.5 K/mcL (0.0-0.6); Eosinophils % 5.8 %; Hematocrit 31.6 % (35.3-44.9); Hemoglobin 9.9 g/dL (11.5-15.4); Immature Granulocytes % 0.3 % (0-4); Lymphocytes # 1.2 K/mcL (0.6-4.6); Mean Corpuscular HGB Conc 31.3 g/dL (31.6-35.5); Mean Corpuscular Hemoglobin 30.3 pg (28.0-33.3); Mean Corpuscular Volume 96.6 fL (83.0-100.0); Mean Platelet Volume 9.7 fL (9.4-12.4); Monocytes # 1.2 K/mcL (0.0-1.3); Monocytes % 12.9 %; Neutrophils # 6.1 K/mcL (1.6-8.9); Platelet Count 543 K/mcL (140-400); Red Blood Count 3.27 M/mcL (3.82-4.97); Red Cell Distribution Width 19.2 % (11.5-14.5); Segmented Neutrophils % 67.1 %; White Blood Count 9.1 K/mcL (4.3-11.1)
[2021-12-31 20:03] LABS: Alanine Aminotransferase 13 Units/L (7-52); Albumin 3.6 g/dL (3.5-5.7); Albumin/Globulin Ratio 1.2 (1.1-2.2); Alkaline Phosphatase 79 Units/L (34-104); Aspartate Amino Transferase 17 Units/L (13-39); BUN/Creatinine Ratio 11 (6-26); Bilirubin,Total 0.4 mg/dL (0.3-1.0); Blood Urea Nitrogen 7 mg/dL (6-20); Calcium 9.4 mg/dL (8.6-10.3); Carbon Dioxide 25 mEq/L (23-29); Chloride 100 mEq/L (98-107); Creatine Kinase 21 Units/L (30-223); Globulin 3.1 g/dL (2.4-3.5); Glucose 106 mg/dL (70-105); Osmolality,Calculated 274 (280-300); Potassium 3.8 mEq/L (3.5-5.1); Sodium 133 mEq/L (136-145); Total Protein 6.7 g/dL (6.4-8.9)
[2021-12-31 20:04] LABS: INR 1.6; Prothrombin Time 18.2 Seconds (9.4-12.1)
[2021-12-31 20:06] LABS: Activated Partial Thrombo Time 32.2 Seconds (26.0-36.0)
[2021-12-31] MEDS ORDERED: *HR* Heparin 5,000 UNIT/ML VIAL IVP ONE (21:41)
[2021-12-31] MEDS ORDERED: *HR* Heparin 5,000 UNIT/ML VIAL IVP PRN ×2 (21:41)
[2021-12-31] MEDS ORDERED: Heparin 25,000UNIT/250ML 1/2NS 25,000 UNIT/250 ML IV.SOLN IVC SCH (21:45)
[2021-12-31] MEDS ORDERED: 0.9 % Sodium Chloride 1,000 ML IVC ONE (22:01)
[2021-12-31 22:52] LABS: Heparin anti-factor XA UFH < 0.04 IU/mL (0.30-0.70); INR 1.6
[2021-12-31] MEDS ORDERED: Acetaminophen 325 MG TABLET PO PRN (23:37)
[2021-12-31] MEDS ORDERED: Ondansetron 4 MG/2 ML VIAL IVP PRN (23:37)
[2021-12-31] MEDS ORDERED: Naloxone 0.4 MG/ML INJ IVP PRN (23:37)
[2021-12-31] MEDS ORDERED: 0.9 % Sodium Chloride 1,000 ML IVC SCH (23:45)
[2022-01-01] MEDS: *HR* Amiodarone 200 MG TABLET PO SCH ×2 (02:00→09:28)
[2022-01-01 04:52] LABS: Hematocrit 28.6 % (35.3-44.9); Hemoglobin 8.9 g/dL (11.5-15.4); Mean Corpuscular HGB Conc 31.1 g/dL (31.6-35.5); Mean Corpuscular Hemoglobin 30.4 pg (28.0-33.3); Mean Corpuscular Volume 97.6 fL (83.0-100.0); Mean Platelet Volume 9.7 fL (9.4-12.4); Platelet Count 461 K/mcL (140-400); Red Blood Count 2.93 M/mcL (3.82-4.97); Red Cell Distribution Width 19.2 % (11.5-14.5); White Blood Count 7.9 K/mcL (4.3-11.1)
[2022-01-01 04:59] LABS: Heparin anti-factor XA UFH 0.18 IU/mL (0.30-0.70); INR 1.7; Prothrombin Time 19.3 Seconds (9.4-12.1)
[2022-01-01 05:02] LABS: Activated Partial Thrombo Time 44.5 Seconds (26.0-36.0)
[2022-01-01 05:11] LABS: BUN/Creatinine Ratio 9 (6-26); Blood Urea Nitrogen 5 mg/dL (6-20); Calcium 8.8 mg/dL (8.6-10.3); Carbon Dioxide 22 mEq/L (23-29); Chloride 107 mEq/L (98-107); Glucose 91 mg/dL (70-105); Osmolality,Calculated 277 (280-300); Potassium 3.8 mEq/L (3.5-5.1); Sodium 135 mEq/L (136-145)
[2022-01-01] MEDS ORDERED: Aspirin Enteric Coated 81 MG Tablet PO SCH (09:00)
[2022-01-01] MEDS ORDERED: Heparin 1,000 UNITS/500 mL 500 ML ONE ×2 (11:31→14:46)
[2022-01-01] MEDS ORDERED: *HR* Heparin 10,000 UNIT/10 ML VIAL ONE (11:31)
[2022-01-01] MEDS ORDERED: 0.9 % Sodium Chloride 1,000 ML ONE (11:31)
[2022-01-01] MEDS ORDERED: Iopamidol - 300 100 ML INFUS..BTL ONE ×2 (11:31→12:15)
[2022-01-01] MEDS ORDERED: *HR* FentaNYL (PF) 100 MCG/2 ML VIAL ONE ×5 (11:59→16:45)
[2022-01-01] MEDS ORDERED: *HR* Midazolam HCl 2 MG/2 ML VIAL ONE ×3 (11:59→15:39)
[2022-01-01] MEDS ORDERED: Heparin 1,000 UNITS/500 mL 1,500 ML ONE (14:00)
[2022-01-01] MEDS ORDERED: Protamine Sulfate 50 MG/5 ML VIAL IVP ONE (14:06)
[2022-01-01] MEDS ORDERED: *HR* Rocuronium Bromide 50 MG/5 ML VIAL ONE (14:33)
[2022-01-01] MEDS ORDERED: *HR* Succinylcholine 200 MG/10 ML VIAL IVP ONE (14:33)
[2022-01-01] MEDS ORDERED: *HR* Heparin 5,000 UNIT/ML VIAL ONE (14:33)
[2022-01-01] MEDS ORDERED: Lidocaine -MPF 2% 2 ML VIAL ONE (14:33)
[2022-01-01] MEDS ORDERED: *HR* Phenylephrine 10 MG/ML VIAL ONE (14:33)
[2022-01-01] MEDS ORDERED: EPINEPHrine 1 MG/ML VIAL ONE (14:33)
[2022-01-01] MEDS ORDERED: Lidocaine -MPF 4% 5 ML AMPUL ONE (14:33)
[2022-01-01] MEDS ORDERED: *HR* Propofol 200 MG/20 ML VIAL IVP ONE (14:33)
[2022-01-01] MEDS ORDERED: Ondansetron 4 MG/2 ML VIAL ONE (14:33)
[2022-01-01] MEDS ORDERED: Norepinephrine 4 MG/254 ML IV.SOLN IVC ONE (14:43)
[2022-01-01] MEDS ORDERED: Dexmedetomidine HCl 400 MCG/100 ML MLS IVC ONE (14:48)
[2022-01-01] MEDS ORDERED: CeFAZolin Syr 2,000MG/20 ML 2,000 MG/20 ML SYRINGE IVPB ONE ×2 (17:30→21:55)
[2022-01-01] MEDS ORDERED: *HR* Labetalol 20 MG/4 ML SYRINGE IVP PRN (21:55)
[2022-01-01] MEDS ORDERED: Naloxone 0.4 MG/ML INJ IVP PRN ×2 (21:55)
[2022-01-01] MEDS ORDERED: Ondansetron 4 MG/2 ML VIAL IVP PRN (21:55)
[2022-01-02] MEDS: Acetaminophen 325 MG TABLET PO PRN (00:27)
[2022-01-02 03:14] LABS: Basophils % 0.1 %; Hematocrit 26.4 % (35.3-44.9); Hemoglobin 8.2 g/dL (11.5-15.4); Immature Granulocytes % 0.5 % (0-4); Lymphocytes # 0.5 K/mcL (0.6-4.6); Lymphocytes % 7.2 %; Mean Corpuscular HGB Conc 31.1 g/dL (31.6-35.5); Mean Corpuscular Volume 96.7 fL (83.0-100.0); Mean Platelet Volume 9.8 fL (9.4-12.4); Monocytes # 0.2 K/mcL (0.0-1.3); Neutrophils # 6.6 K/mcL (1.6-8.9); Platelet Count 437 K/mcL (140-400); Red Blood Count 2.73 M/mcL (3.82-4.97); Red Cell Distribution Width 19.1 % (11.5-14.5); Segmented Neutrophils % 90.2 %; White Blood Count 7.4 K/mcL (4.3-11.1)
[2022-01-02] MEDS: CeFAZolin 2 GM/120 ML BAG IVPB SCH ×2 (07:54→18:13)
[2022-01-02] MEDS: *HR* Amiodarone 200 MG TABLET PO SCH ×2 (07:55→21:31)
[2022-01-02] MEDS: Aspirin Enteric Coated 81 MG Tablet PO SCH (07:55)
[2022-01-02] MEDS ORDERED: Morphine Sulfate 2 MG/ML SYRINGE IVP PRN (10:52)
[2022-01-02] MEDS: *HR* HYDROcodone/Acet 5/325 mg TABLET PO PRN ×2 (10:56→18:13)
[2022-01-02 12:09] LABS: INR 2.8; Prothrombin Time 31.2 Seconds (9.4-12.1)
[2022-01-02] MEDS ORDERED: Warfarin perPT PO PRN (18:00)
[2022-01-02] MEDS ORDERED: *HR* Warfarin 2 MG TABLET PO ONE (18:00)
[2022-01-02] MEDS: *HR* OxyCODONE Immed Rel 5 MG TABLET PO PRN (21:31)
[2022-01-03] MEDS: CeFAZolin 2 GM/120 ML BAG IVPB SCH (00:15)
[2022-01-03 08:29] LABS: Hematocrit 27.8 % (35.3-44.9); Hemoglobin 8.6 g/dL (11.5-15.4); Mean Corpuscular HGB Conc 30.9 g/dL (31.6-35.5); Mean Corpuscular Hemoglobin 30.6 pg (28.0-33.3); Mean Corpuscular Volume 98.9 fL (83.0-100.0); Mean Platelet Volume 9.6 fL (9.4-12.4); Platelet Count 466 K/mcL (140-400); Red Blood Count 2.81 M/mcL (3.82-4.97); Red Cell Distribution Width 19.5 % (11.5-14.5)
[2022-01-03 08:30] LABS: White Blood Count 11.6 K/mcL (4.3-11.1)
[2022-01-03 08:35] LABS: INR 3.5; Prothrombin Time 38.6 Seconds (9.4-12.1)
[2022-01-03 08:50] LABS: BUN/Creatinine Ratio 10 (6-26); Blood Urea Nitrogen 6 mg/dL (6-20); Calcium 9.2 mg/dL (8.6-10.3); Carbon Dioxide 24 mEq/L (23-29); Chloride 107 mEq/L (98-107); Glucose 90 mg/dL (70-105); Osmolality,Calculated 283 (280-300); Potassium 3.4 mEq/L (3.5-5.1); Sodium 138 mEq/L (136-145)
[2022-01-03] MEDS: *HR* Amiodarone 200 MG TABLET PO SCH ×2 (09:09→20:04)
[2022-01-03] MEDS: Aspirin Enteric Coated 81 MG Tablet PO SCH (09:09)
[2022-01-03] MEDS: *HR* OxyCODONE Immed Rel 5 MG TABLET PO PRN (09:17)
[2022-01-03] MEDS: Acetaminophen 325 MG TABLET PO PRN (20:05)
[2022-01-04] MEDS: *HR* HYDROcodone/Acet 5/325 mg TABLET PO PRN ×2 (04:58→12:51)
[2022-01-04 05:03] LABS: Hematocrit 28.3 % (35.3-44.9); Hemoglobin 8.8 g/dL (11.5-15.4); Mean Corpuscular HGB Conc 31.1 g/dL (31.6-35.5); Mean Corpuscular Hemoglobin 30.3 pg (28.0-33.3); Mean Corpuscular Volume 97.6 fL (83.0-100.0); Mean Platelet Volume 9.7 fL (9.4-12.4); Platelet Count 448 K/mcL (140-400); Red Cell Distribution Width 19.5 % (11.5-14.5); White Blood Count 9.9 K/mcL (4.3-11.1)
[2022-01-04 05:11] LABS: Prothrombin Time 32.8 Seconds (9.4-12.1)
[2022-01-04 05:23] LABS: BUN/Creatinine Ratio 11 (6-26); Blood Urea Nitrogen 6 mg/dL (6-20); Carbon Dioxide 24 mEq/L (23-29); Chloride 109 mEq/L (98-107); Glucose 94 mg/dL (70-105); Osmolality,Calculated 287 (280-300); Potassium 3.7 mEq/L (3.5-5.1); Sodium 140 mEq/L (136-145)
[2022-01-04] MEDS: Aspirin Enteric Coated 81 MG Tablet PO SCH (08:07)
[2022-01-04] MEDS: *HR* Amiodarone 200 MG TABLET PO SCH (08:07)
[2022-01-04 14:45] VITALS: BP 108/66; PULSE 79; TEMP 98; O2SAT 96
[2022-01-04] MEDS ORDERED: *HR* Warfarin 1 MG TABLET PO ONE (18:00)
== END 2022-01-04 17:23 | DRG 169 ==
LOC: 2NENU 18:58 → EMEROOARM 18:58 → SUATTDRO 22:24 → 2NENU 01-01 00:10 → 2NNU 01-01 21:40 → 2ANU 01-02 13:57
PROVIDERS: ADMIT Internal Medicine; ATTEND Internal Medicine